=== PATIENT | male | born 1965 | race Caucasian/White ===

== ENCOUNTER → 2017-07-16 | Outpatient (CLI) | payer BC ==
--- NOTE | 2017-07-20 09:36 | MRI ---
HISTORY: Right shoulder pain from falling off ladder Study: MRI right shoulder without contrast Comparison: None Technique: Multiplanar multisequence MRI of the right shoulder was obtained utilizing standard depar tmental protocol. Findings: Rotator cuff There is a partial thickness, nearly full width, articular surface tear of approximately 50% involvin g the supraspinatus tendon insertion. There is tendinopathy of the distal subscapularis as well as wh at appears to be a full thickness tear with approximately 1.1 cm of retraction. Bursa No bursal effusion or thickening is seen. Musculature There is no muscular tear, contusion, or atrophy. Acromioclavicular joint There are moderate degenerative changes of the acromioclavicular joint. A type 2 acromion configurati on is noted. There is no anterior or lateral acromial downsloping. LONG BICIPITAL TENDON There is flattening and mild medial subluxation of the tendon within the groove compatible with intra -articular tendinopathy. The distal tendon is not well visualized, possibly subluxed or partially tor n. GLENOHUMERAL JOINT Joint fluid There is no glenohumeral joint effusion. Cartilage and Bone No focal hyaline cartilage defects are noted. No Hill-Sachs, reverse Hill-Sachs, or bony Bankart lesi ons are seen. focal subchondral cystic changes are present at the greater tubercle. Labrum There are no SLAP or soft tissue Bankart lesions. No paralabral cysts are seen. Other support structures No capsular or ligamentous abnormality is seen. IMPRESSION: 1. Full thickness subscapularis tendon tear. 2. Flattening and medial subluxation of the long head of biceps with suspected longitudinal interstit ial tearing. 3. Partial thickness articular surface tear of the supraspinatus tendon. Reported By:
== END | disposition home or self-care (01) ==
LOC: RAD 15:03
PROVIDERS: ATTEND Internal Medicine
DX: M25.511 Pain in right shoulder (principal); S46.211A Strain of muscle, fascia and tendon of other parts of biceps, right arm, initial encounter; W19.XXXA Unspecified fall, initial encounter; Y92.9 Unspecified place or not applicable
CPT/HCPCS: 73221